=== PATIENT | female | born 1940 | race Caucasian/White ===

== ENCOUNTER 2018-12-29 10:02 | Emergency (ER) | payer MEDICAID | END 2018-12-29 11:16 | disposition home or self-care (01) | LOC: FTE 11:16 | DX: R21 Rash and other nonspecific skin eruption (principal); I10 Essential (primary) hypertension | CPT/HCPCS: 99282; Z7502 ==

== ENCOUNTER 2018-12-31 06:42 | Emergency (ER) | payer MEDICAID | END 2018-12-31 07:27 | disposition home or self-care (01) | LOC: FTE 06:42 | DX: R21 Rash and other nonspecific skin eruption (principal); I10 Essential (primary) hypertension | CPT/HCPCS: 99283; Z7502 ==